=== PATIENT | male | born 1965 | race Caucasian/White ===

== ENCOUNTER 2017-03-08 11:10 | Emergency (ER) | payer MEDICAID ==
[~2017-03-08] VITALS: Ht 182.9 cm; Wt 73.7 kg
[2017-03-08 12:22] LABS: HEMATOCRIT 32.1 % (39.2-51.8); WHITE BLOOD COUNT 8.3 x10^3/uL (3.4-10)
[2017-03-08 12:33] LABS: BLOOD UREA NITROGEN 39 mg/dL (7-18)
[2017-03-08 12:45] LABS: IS PT STATUS REG ER OR PRE ER? YES
[2017-03-08 13:34] VITALS: BP 135/78
== END 2017-03-08 13:37 | disposition home or self-care (01) ==
LOC: ED 12:00
DX: I13.0 Hypertensive heart and chronic kidney disease with heart failure and stage 1 through stage 4 chronic kidney disease, or unspecified chronic kidney disease (principal); I50.42 Chronic combined systolic (congestive) and diastolic (congestive) heart failure; N18.3 Chronic kidney disease, stage 3 (moderate); F43.0 Acute stress reaction; F19.10 Other psychoactive substance abuse, uncomplicated
CPT/HCPCS: 36415; 71010; 80048; 82040; 83880; 84484; 85025; 93005; 99285

== ENCOUNTER 2017-03-30 06:00 | Emergency (ER) | payer MEDICAID ==
[~2017-03-30] VITALS: Ht 182.9 cm; Wt 81.1 kg
[2017-03-30] MEDS ORDERED: METOPROLOL SUCCINATE 25 MG TAB.ER.24H PO ONE (06:30)
[2017-03-30] MEDS ORDERED: FUROSEMIDE 20 MG/2 ML IV ONE (06:30)
[2017-03-30] MEDS ORDERED: SODIUM CHLORIDE FLUSH 10ML SYR IVF ONE (06:30)
[2017-03-30] MEDS ORDERED: FUROSEMIDE 20 MG/2 ML ONE (06:35)
[2017-03-30 06:57] LABS: HEMOGLOBIN 11.2 g/dL (13.7-18.0)
[2017-03-30 07:08] LABS: ASPARTATE AMINO TRANSFERASE 33 U/L (15-37); BLOOD UREA NITROGEN 42 mg/dL (7-18)
[2017-03-30 07:15] LABS: IS PT STATUS REG ER OR PRE ER? YES
[2017-03-30 07:30] LABS: HEMATOCRIT 32.5 % (39.2-51.8); WHITE BLOOD COUNT 8.1 x10^3/uL (3.4-10)
[2017-03-30 09:12] VITALS: BP 110/72
== END 2017-03-30 09:23 | disposition home or self-care (01) ==
LOC: ED 07:33
DX: I11.0 Hypertensive heart disease with heart failure (principal); I50.22 Chronic systolic (congestive) heart failure; E66.9 Obesity, unspecified; E11.9 Type 2 diabetes mellitus without complications; E07.9 Disorder of thyroid, unspecified; F32.9 Major depressive disorder, single episode, unspecified; I25.2 Old myocardial infarction; F17.210 Nicotine dependence, cigarettes, uncomplicated; M10.9 Gout, unspecified; Z59.0 Homelessness
CPT/HCPCS: 36415; 71010; 80053; 83880; 84484; 85025; 93005; 96374; 99285; J1940

== ENCOUNTER 2017-04-02 01:22 | Emergency (ER) | payer MEDICAID ==
[~2017-04-02] VITALS: Ht 182.9 cm; Wt 80.6 kg
[2017-04-02] MEDS ORDERED: LABETALOL 5MG/ML, 20ML IVPush STA (02:01)
[2017-04-02] MEDS ORDERED: LABETALOL 5MG/ML, 20ML ONE (02:16)
[2017-04-02 02:20] LABS: HEMATOCRIT 30.6 % (39.2-51.8); HEMOGLOBIN 10.7 g/dL (13.7-18.0); WHITE BLOOD COUNT 9.1 x10^3/uL (3.4-10)
[2017-04-02 02:30] LABS: ASPARTATE AMINO TRANSFERASE 36 U/L (15-37); BLOOD UREA NITROGEN 40 mg/dL (7-18)
[2017-04-02] MEDS ORDERED: SODIUM CHLORIDE FLUSH 10ML SYR IVF ONE (02:30)
[2017-04-02 03:09] VITALS: BP 149/92
== END 2017-04-02 04:24 | disposition home or self-care (01) ==
LOC: ED 01:40
DX: Z76.0 Encounter for issue of repeat prescription (principal); I10 Essential (primary) hypertension; N28.9 Disorder of kidney and ureter, unspecified; Z87.891 Personal history of nicotine dependence
CPT/HCPCS: 36415; 71010; 80053; 81001; 83880; 85025; 87086; 93005; 96374

== ENCOUNTER 2017-04-03 21:35 | Inpatient (IN) | payer MEDICAID ==
[~2017-04-03] VITALS: Ht 182.9 cm; Wt 80.1 kg
[2017-04-03 22:30] LABS: HEMATOCRIT 32.6 % (39.2-51.8); HEMOGLOBIN 11.3 g/dL (13.7-18.0); WHITE BLOOD COUNT 8.8 x10^3/uL (3.4-10)
[2017-04-03] MEDS ORDERED: METOPROLOL 1 MG/ML, 5ML IVPush PRN (22:30)
[2017-04-03] MEDS ORDERED: METOPROLOL 1 MG/ML, 5ML ONE (22:35)
[2017-04-03 22:42] LABS: PATH.CAST-FLAG NOT PRESENT; SPERM-FLAG NOT PRESENT; SRC-FLAG NOT PRESENT; XTAL-FLAG NOT PRESENT; YLC-FLAG NOT PRESENT
[2017-04-03 23:31] LABS: BLOOD UREA NITROGEN 41 mg/dL (7-18)
[2017-04-03 23:32] LABS: ASPARTATE AMINO TRANSFERASE 36 U/L (15-37)
[2017-04-03 23:36] LABS: IS PT STATUS REG ER OR PRE ER? YES
[2017-04-04 04:24] VITALS: BP 159/112
[2017-04-04] MEDS ORDERED: SODIUM CHLORIDE 0.9% 1,000 ML IV SCH (05:19)
[2017-04-04] MEDS ORDERED: hydrALAzine 20 MG/ML, 1ML IVPush PRN (05:30)
[2017-04-04] MEDS ORDERED: LABETALOL 5MG/ML, 20ML IVPush PRN (05:30)
[2017-04-04] MEDS ORDERED: ONDANSETRON 2MG/ML, 2ML IVPush PRN (05:30)
[2017-04-04] MEDS ORDERED: ACETAMINOPHEN 325 MG TABLET PO PRN (05:30)
[2017-04-04] MEDS: HEPARIN 5,000 UNITS/ML, 1ML SQ SCH ×2 (05:41→17:26)
[2017-04-04] MEDS: HYDROmorphone 2 MG/ML, 1ML IVPush PRN ×2 (05:41→20:19)
[2017-04-04] MEDS: METOPROLOL TARTRATE 25 MG TABLET PO SCH ×2 (06:25→17:33)
[2017-04-04 07:12] VITALS: BP 113/72
[2017-04-04] MEDS: TAMSULOSIN 0.4 MG CAP.ER.24H PO SCH (08:27)
[2017-04-04 13:43] VITALS: BP 116/78
[2017-04-04 20:10] VITALS: BP 144/84
[2017-04-05 01:21] VITALS: BP 127/83
[2017-04-05] MEDS: SODIUM CHLORIDE 0.9% 1,000 ML IV SCH ×2 (05:19→15:19)
[2017-04-05] MEDS: HEPARIN 5,000 UNITS/ML, 1ML SQ SCH ×2 (05:20→18:03)
[2017-04-05] MEDS: METOPROLOL TARTRATE 25 MG TABLET PO SCH ×2 (05:20→18:03)
[2017-04-05 05:49] LABS: HEMATOCRIT 29.8 % (39.2-51.8); HEMOGLOBIN 10.3 g/dL (13.7-18.0); WHITE BLOOD COUNT 6.3 x10^3/uL (3.4-10)
[2017-04-05 06:33] LABS: ASPARTATE AMINO TRANSFERASE 26 U/L (15-37); BLOOD UREA NITROGEN 48 mg/dL (7-18)
[2017-04-05 07:25] VITALS: BP 141/96
[2017-04-05] MEDS: TAMSULOSIN 0.4 MG CAP.ER.24H PO SCH (08:15)
[2017-04-05 13:28] VITALS: BP 150/97
[2017-04-05 18:36] VITALS: BP 161/83
[2017-04-06] MEDS: SODIUM CHLORIDE 0.9% 1,000 ML IV SCH ×2 (00:57→11:52)
[2017-04-06 01:50] VITALS: BP 157/76
[2017-04-06] MEDS: HEPARIN 5,000 UNITS/ML, 1ML SQ SCH (05:30)
[2017-04-06] MEDS: METOPROLOL TARTRATE 25 MG TABLET PO SCH (05:49)
[2017-04-06 05:57] LABS: HEMATOCRIT 30.1 % (39.2-51.8); HEMOGLOBIN 10.6 g/dL (13.7-18.0); WHITE BLOOD COUNT 6.9 x10^3/uL (3.4-10)
[2017-04-06 06:07] LABS: BLOOD UREA NITROGEN 51 mg/dL (7-18)
[2017-04-06 07:20] VITALS: BP 143/93
[2017-04-06] MEDS: TAMSULOSIN 0.4 MG CAP.ER.24H PO SCH (09:53)
[2017-04-06] MEDS ORDERED: METO25TA35 PO (12:24)
[2017-04-06] MEDS ORDERED: TAMS-11 PO (12:24)
[2017-04-06 13:25] VITALS: BP 157/87
== END 2017-04-06 15:40 | disposition home or self-care (01) | DRG 683 ==
LOC: ED 22:12 → EDIP 04-04 02:41 → 4WST 04-04 04:21
PROVIDERS: ADMIT Hospitalist; ATTEND Hospitalist
DX: N17.9 Acute kidney failure, unspecified (principal); I13.0 Hypertensive heart and chronic kidney disease with heart failure and stage 1 through stage 4 chronic kidney disease, or unspecified chronic kidney disease; I50.9 Heart failure, unspecified; N39.0 Urinary tract infection, site not specified; N13.30 Unspecified hydronephrosis; D64.9 Anemia, unspecified; I16.0 Hypertensive urgency; B19.20 Unspecified viral hepatitis C without hepatic coma; N18.9 Chronic kidney disease, unspecified; Z83.3 Family history of diabetes mellitus; Z87.891 Personal history of nicotine dependence; Z90.49 Acquired absence of other specified parts of digestive tract
CPT/HCPCS: 36415; 71010; 76770; 80048; 80053; 81001; 83735; 84100; 84484; 85025; 87086; 93005; 96374; J1170; J1644; J7030

== ENCOUNTER 2019-01-22 05:34 | Inpatient (IN) | payer MEDICAID ==
[~2019-01-22] VITALS: Ht 182.9 cm; Wt 93.7 kg
[~2019-01-22 05:34] MED LIST: METO25TA35 PO; TAMS-11 PO
--- NOTE | 2019-01-22 05:59 | NUR ---
Pt c/o right ankle swelling, redness, pain x 3-4 days, states "I think I was bit by a spider". Ambulates w/ steady gait, no open lesion noted, warm to touch, reports fever 2 days ago, afebrile now, vitals stable.
[2019-01-22] MEDS ORDERED: SODIUM CHLORIDE FLUSH 10ML SYR IVF ONE (06:30)
[2019-01-22] MEDS ORDERED: CEFTRIAXONE PMX 1GM/50ML 50 ML IVPB ONE (06:30)
--- NOTE | 2019-01-22 06:43 | NUR ---
Lab and xray at bedside.
[2019-01-22 07:07] LABS: BASOPHILS # (AUTO) 0.02 x10^3/uL (0-0.1); BASOPHILS % (AUTO) 0 % (0-1); EOSINOPHILS # (AUTO) 0.09 x10^3/uL (0-0.4); EOSINOPHILS % (AUTO) 2 % (1-7); LYMPHOCYTES # (AUTO) 0.95 x10^3/uL (1-3.4); LYMPHOCYTES % (AUTO) 16 % (22-44); MD NO; MEAN CORPUSCULAR HEMOGLOBIN 28.1 pg (27.5-34.5); MEAN CORPUSCULAR HGB CONC 33.8 g/dL (33.2-36.2); MEAN CORPUSCULAR VOLUME 83.1 fL (81-97); MEAN PLATELET VOLUME 7.9 fL (7.4-10.4); MONOCYTES # (AUTO) 0.96 x10^3/uL (0.2-0.8); MONOCYTES % (AUTO) 16 % (2-9); NEUTROPHILS # (AUTO) 3.87 x10^3/uL (1.8-6.8); NEUTROPHILS % (AUTO) 66 % (42-75); PLATELET COUNT 228 x10^3/uL (130-400); RED BLOOD COUNT 4.06 x10^6/uL (4.38-5.82); RED CELL DISTRIBUTION WIDTH 14.3 % (9.4-14.8)
[2019-01-22 07:15] LABS: INTERNATIONAL NORMALIZED RATIO 1.05 (0.93-1.1)
[2019-01-22 07:18] LABS: ALBUMIN 3.6 g/dL (3.4-5.0); ANION GAP 12 mmol/L (5-15); CALCIUM 8.7 mg/dL (8.5-10.1); CHLORIDE 104 mmol/L (98-107); CREATININE 3.85 mg/dL (0.7-1.3)
--- NOTE | 2019-01-22 07:40 | NUR ---
assumed care. pt noted to have erythema ankle and states he has off and on chills. walking around in room and requested water. provided water and a blanket. back in bed while awaiting dispo
[2019-01-22] MEDS ORDERED: CEFTRIAXONE PMX 1GM/50ML 50 ML ONE (09:04)
--- NOTE | 2019-01-22 09:09 | NUR ---
pt sleeping, antibiotics infusing
--- NOTE | 2019-01-22 09:30 | NUR ---
JD STATES HE HAS LEG CRAMPS AND IT HELPS TO GET UP AND STAND.
--- NOTE | 2019-01-22 10:30 | NUR ---
REPORT TO JEFFRY JANG. PT TO BE TRANSPORTED TO FLOOR
[2019-01-22 11:09] VITALS: BP 121/76
[2019-01-22] MEDS ORDERED: morphine SULFATE 10 MG/ML, 1ML IVPush PRN (11:30)
[2019-01-22] MEDS: OXYcodone IR 5MG TABLET PO PRN ×2 (11:34→23:54)
[2019-01-22] MEDS ORDERED: ACETAMINOPHEN 325 MG TABLET PO PRN (12:00)
[2019-01-22] MEDS ORDERED: PROMETHAZINE 25 MG/ML, 1ML IM PRN (12:00)
[2019-01-22] MEDS ORDERED: LABETALOL 5MG/ML, 20ML IVPush PRN (12:00)
[2019-01-22] MEDS ORDERED: ONDANSETRON ODT 4 MG PO PRN (12:00)
[2019-01-22] MEDS ORDERED: BISACODYL 10 MG SUPP PR PRN (12:00)
[2019-01-22] MEDS ORDERED: POLYETHYLENE GLYCOL 17 GM PACKET PO PRN (12:00)
[2019-01-22] MEDS ORDERED: hydrALAzine 20 MG/ML, 1ML IVPush PRN (12:00)
[2019-01-22] MEDS ORDERED: ONDANSETRON 2MG/ML, 2ML IVPush PRN (12:00)
[2019-01-22 12:45] LABS: HEMOGLOBIN A1C 4.9 % (4.2-6.3)
[2019-01-22] MEDS: SENNA/DOCUSATE TABLET PO SCH (12:46)
[2019-01-22] MEDS: AMPICILLIN/SULBACTAM 3 GM in SODIUM CHLORIDE 0.9% 100 ML IV SCH ×2 (12:46→23:54)
[2019-01-22] MEDS: TAMSULOSIN 0.4 MG CAP.ER.24H PO SCH (12:46)
[2019-01-22] MEDS: SODIUM CHLORIDE 0.9% 1,000 ML IV SCH ×2 (12:47→22:08)
[2019-01-22] MEDS: HEPARIN 5,000 UNITS/ML, 1ML SQ SCH ×2 (12:47→19:45)
[2019-01-22 12:56] LABS: FREE T4 (FREE THYROXINE) 1.36 ng/dL (0.76-1.46)
[2019-01-22 14:08] VITALS: BP 131/82
[2019-01-22 17:14] VITALS: BP 146/81
[2019-01-22] MEDS: METOPROLOL TARTRATE 25 MG TABLET PO SCH (17:16)
[2019-01-22 19:12] VITALS: BP 120/78
[2019-01-23 02:19] VITALS: BP 130/81
[2019-01-23] MEDS: HEPARIN 5,000 UNITS/ML, 1ML SQ SCH ×3 (03:49→20:08)
[2019-01-23 05:50] LABS: BASOPHILS % (AUTO) 0 % (0-1); EOSINOPHILS % (AUTO) 4 % (1-7); LYMPHOCYTES # (AUTO) 0.84 x10^3/uL (1-3.4); LYMPHOCYTES % (AUTO) 18 % (22-44); MD NO; MEAN CORPUSCULAR HEMOGLOBIN 29.2 pg (27.5-34.5); MEAN CORPUSCULAR HGB CONC 34.6 g/dL (33.2-36.2); MEAN CORPUSCULAR VOLUME 84.5 fL (81-97); MEAN PLATELET VOLUME 8.2 fL (7.4-10.4); MONOCYTES # (AUTO) 0.72 x10^3/uL (0.2-0.8); MONOCYTES % (AUTO) 16 % (2-9); NEUTROPHILS # (AUTO) 2.88 x10^3/uL (1.8-6.8); NEUTROPHILS % (AUTO) 62 % (42-75); PLATELET COUNT 196 x10^3/uL (130-400); RED BLOOD COUNT 3.68 x10^6/uL (4.38-5.82); RED CELL DISTRIBUTION WIDTH 14.5 % (9.4-14.8)
[2019-01-23 06:01] LABS: ALANINE AMINOTRANSFERASE 30 U/L (12-78); ALBUMIN 2.8 g/dL (3.4-5.0); ALKALINE PHOSPHATASE 70 U/L (45-117); ANION GAP 7 mmol/L (5-15); BILIRUBIN,TOTAL 0.6 mg/dL (0.2-1.0); CALCIUM 7.7 mg/dL (8.5-10.1); CHLORIDE 109 mmol/L (98-107); CHOL/HDL RATIO 2.9; CHOLESTEROL, TOTAL 110 mg/dL (140-239); CREATININE 3.18 mg/dL (0.7-1.3); HDL CHOL % 35 % (26-37); HDL CHOLESTEROL (DIRECT) 38 mg/dL (40-60); LDL CHOLESTEROL,CALCULATED 60 mg/dL (54-169); LDL/HDL RATIO 1.6 (0.5-3.0); TOTAL PROTEIN 7.2 g/dL (6.4-8.2); TRIGLYCERIDES 60 mg/dL (50-200); VLDL CHOLESTEROL 12 mg/dL (0-25)
[2019-01-23] MEDS: METOPROLOL TARTRATE 25 MG TABLET PO SCH ×2 (06:27→17:46)
[2019-01-23 07:21] VITALS: BP 119/75
[2019-01-23] MEDS: TAMSULOSIN 0.4 MG CAP.ER.24H PO SCH (07:46)
[2019-01-23] MEDS: SENNA/DOCUSATE TABLET PO SCH (07:46)
[2019-01-23] MEDS: AMPICILLIN/SULBACTAM 3 GM in SODIUM CHLORIDE 0.9% 100 ML IV SCH ×2 (12:11→23:42)
[2019-01-23 14:36] VITALS: BP 152/88
[2019-01-23 17:45] VITALS: BP 131/85
[2019-01-23 18:50] VITALS: BP 155/83
[2019-01-24 01:22] VITALS: BP 144/80
[2019-01-24] MEDS: HEPARIN 5,000 UNITS/ML, 1ML SQ SCH ×3 (04:22→20:43)
[2019-01-24] MEDS: METOPROLOL TARTRATE 25 MG TABLET PO SCH ×2 (06:07→17:31)
[2019-01-24] MEDS: SENNA/DOCUSATE TABLET PO SCH (08:02)
[2019-01-24] MEDS: TAMSULOSIN 0.4 MG CAP.ER.24H PO SCH (08:02)
[2019-01-24 08:47] VITALS: BP 160/85
[2019-01-24] MEDS: AMPICILLIN/SULBACTAM 3 GM in SODIUM CHLORIDE 0.9% 100 ML IV SCH (12:27)
[2019-01-24 12:59] VITALS: BP 146/79
[2019-01-24 17:23] VITALS: BP 159/95
[2019-01-24] MEDS: OXYcodone IR 5MG TABLET PO PRN (20:54)
[2019-01-24 21:04] VITALS: BP 140/87
[2019-01-25] MEDS: AMPICILLIN/SULBACTAM 3 GM in SODIUM CHLORIDE 0.9% 100 ML IV SCH (00:10)
[2019-01-25 00:17] VITALS: BP 146/92
[2019-01-25] MEDS: HEPARIN 5,000 UNITS/ML, 1ML SQ SCH ×2 (04:15→12:24)
[2019-01-25] MEDS: OXYcodone IR 5MG TABLET PO PRN (04:15)
[2019-01-25 06:10] VITALS: BP 110/65
[2019-01-25] MEDS: METOPROLOL TARTRATE 25 MG TABLET PO SCH ×2 (06:11→17:50)
[2019-01-25 07:54] VITALS: BP 123/77
[2019-01-25] MEDS: SENNA/DOCUSATE TABLET PO SCH (09:27)
[2019-01-25] MEDS: TAMSULOSIN 0.4 MG CAP.ER.24H PO SCH (09:27)
[2019-01-25] MEDS ORDERED: AMPICILLIN/SULBACTAM 3 GM in SODIUM CHLORIDE 0.9% 100 ML IV SCH (12:00)
[2019-01-25 12:46] VITALS: BP 131/62
[2019-01-25] MEDS ORDERED: AMOX1TAB64 PO (14:38)
== END 2019-01-25 22:11 | disposition home or self-care (01) | DRG 469 ==
LOC: ED 06:34 → EDIP 08:11 → 4NOR 11:03
PROVIDERS: ADMIT Internal Medicine; ATTEND Internal Medicine
DX: N17.0 Acute kidney failure with tubular necrosis (principal); E11.22 Type 2 diabetes mellitus with diabetic chronic kidney disease; L03.115 Cellulitis of right lower limb; I50.9 Heart failure, unspecified; I13.0 Hypertensive heart and chronic kidney disease with heart failure and stage 1 through stage 4 chronic kidney disease, or unspecified chronic kidney disease; N13.30 Unspecified hydronephrosis; R16.1 Splenomegaly, not elsewhere classified; B18.2 Chronic viral hepatitis C; F15.10 Other stimulant abuse, uncomplicated; I87.8 Other specified disorders of veins; R33.9 Retention of urine, unspecified; N18.3 Chronic kidney disease, stage 3 (moderate); Z83.3 Family history of diabetes mellitus; Z87.891 Personal history of nicotine dependence; Z90.49 Acquired absence of other specified parts of digestive tract
CPT/HCPCS: 36415; 71045; 80048; 80053; 80061; 82040; 83036; 83605; 83735; 84439; 84443; 85025; 85610; 87040; 96365; 99285; G0378; J0295; J0696; J1644; J7030

== ENCOUNTER 2020-04-12 13:35 | Emergency (ER) | payer MEDICAID ==
[~2020-04-12] VITALS: Ht 182.9 cm; Wt 80.2 kg
[~2020-04-12 13:35] MED LIST changes: +AMOX1TAB64 PO
[2020-04-12 13:38] VITALS: BP 152/119
[2020-04-12] MEDS ORDERED: TAMSULOSIN 0.4 MG CAP.ER.24H ONE (14:00)
[2020-04-12] MEDS ORDERED: TAMSULOSIN 0.4 MG CAP.ER.24H PO ONE (14:00)
[2020-04-12 14:23] LABS: MICROSCOPIC INDICATED
[2020-04-12] MEDS ORDERED: AZITHROMYCIN 500 MG TABLET PO ONE (14:30)
[2020-04-12] MEDS ORDERED: CEFTRIAXONE 250 MG IM ONE (14:30)
[2020-04-12] MEDS ORDERED: AZITHROMYCIN 500 MG TABLET ONE (14:35)
[2020-04-12] MEDS ORDERED: CEFTRIAXONE 250 MG ONE (14:35)
== END 2020-04-12 15:02 | disposition home or self-care (01) ==
LOC: ED 14:26
DX: N30.00 Acute cystitis without hematuria (principal); N50.812 Left testicular pain; N50.811 Right testicular pain; R36.9 Urethral discharge, unspecified; I10 Essential (primary) hypertension; Z76.0 Encounter for issue of repeat prescription
CPT/HCPCS: 81001; 87077; 87086; 87491; 87591; 96372; 99283; J0696; 87186

== ENCOUNTER 2020-06-13 09:35 | Emergency (ER) | payer MEDICAID ==
[~2020-06-13] VITALS: Ht 185.4 cm; Wt 79.8 kg
--- NOTE | 2020-06-13 09:41 | NUR ---
No answer when pt called for triage.
[2020-06-13 09:51] VITALS: BP 153/100
--- NOTE | 2020-06-13 10:00 | NUR ---
No answer when called for room from lobby.
--- NOTE | 2020-06-13 10:42 | NUR ---
Pt not in lobby when called to room
== END 2020-06-13 10:44 | disposition left against medical advice (07) ==
LOC: ED 10:33
DX: M25.879 Other specified joint disorders, unspecified ankle and foot (principal); Z53.21 Procedure and treatment not carried out due to patient leaving prior to being seen by health care provider

== ENCOUNTER 2020-06-18 09:26 | Emergency (ER) | payer MEDICAID ==
[~2020-06-18] VITALS: Ht 182.9 cm; Wt 80.0 kg
[2020-06-18 09:29] VITALS: BP 112/71
[2020-06-18] MEDS ORDERED: KETOROLAC 30 MG/1 ML ONE (10:21)
[2020-06-18 10:30] LABS: BASOPHILS % (AUTO) 0 % (0-1); EOSINOPHILS % (AUTO) 1 % (1-7); LYMPHOCYTES % (AUTO) 13 % (22-44); MEAN CORPUSCULAR HEMOGLOBIN 28.9 pg (27.5-34.5); MEAN PLATELET VOLUME 7.6 fL (7.4-10.4); MONOCYTES % (AUTO) 12 % (2-9); NEUTROPHILS % (AUTO) 73 % (42-75); PLATELET COUNT 231 x10^3/uL (130-400); RED BLOOD COUNT 3.96 x10^6/uL (4.38-5.82); RED CELL DISTRIBUTION WIDTH 14.4 % (9.4-14.8)
[2020-06-18] MEDS ORDERED: KETOROLAC 30 MG/1 ML IM ONE (10:30)
[2020-06-18 10:31] LABS: MD NO
== END 2020-06-18 11:38 | disposition home or self-care (01) ==
LOC: ED 11:20
DX: M10.9 Gout, unspecified (principal); M13.172 Monoarthritis, not elsewhere classified, left ankle and foot; M25.572 Pain in left ankle and joints of left foot; I11.0 Hypertensive heart disease with heart failure; I50.9 Heart failure, unspecified; E11.9 Type 2 diabetes mellitus without complications; Z90.49 Acquired absence of other specified parts of digestive tract; Z87.891 Personal history of nicotine dependence
CPT/HCPCS: 36415; 73610; 84550; 85025; 96372; 99284; J1885

== ENCOUNTER 2020-09-30 12:22 | Inpatient (IN) | payer MEDICAID ==
[~2020-09-30] VITALS: Ht 182.9 cm; Wt 74.8 kg
--- NOTE | 2020-09-30 12:47 | NUR ---
Pt made aware of need to change into gown
[2020-09-30] MEDS ORDERED: SODIUM CHLORIDE FLUSH 10ML SYR IVF ONE (13:30)
[2020-09-30 13:46] LABS: BASOPHILS % (AUTO) 0 % (0-1); EOSINOPHILS % (AUTO) 2 % (1-7); LYMPHOCYTES % (AUTO) 8 % (22-44); MEAN CORPUSCULAR HEMOGLOBIN 28.5 pg (27.5-34.5); MEAN CORPUSCULAR HGB CONC 34.3 g/dL (33.2-36.2); MEAN PLATELET VOLUME 7.3 fL (7.4-10.4); MONOCYTES % (AUTO) 8 % (2-9); NEUTROPHILS % (AUTO) 82 % (42-75); PLATELET COUNT 323 x10^3/uL (130-400); RED CELL DISTRIBUTION WIDTH 14.6 % (9.4-14.8)
[2020-09-30 13:48] LABS: MD NO
[2020-09-30 13:58] LABS: ALBUMIN 3.4 g/dL (3.4-5.0); ANION GAP 12 mmol/L (5-15); CALCIUM 8.6 mg/dL (8.5-10.1); CHLORIDE 105 mmol/L (98-107)
[2020-09-30 14:01] LABS: ALANINE AMINOTRANSFERASE 28 U/L (12-78); ALKALINE PHOSPHATASE 93 U/L (45-117); BILIRUBIN,TOTAL 0.3 mg/dL (0.2-1.0); TOTAL PROTEIN 9.2 g/dL (6.4-8.2)
--- NOTE | 2020-09-30 14:47 | NUR ---
xRAY AT BEDSIDE
--- NOTE | 2020-09-30 14:56 | NUR ---
Pt continually removing VS monitorings, moving around room constantly, yelling obscenities at SO, refusing to sit still.
--- NOTE | 2020-09-30 15:03 | NUR ---
Pt changed himself out of gown back into clothing, UA collected
[2020-09-30 15:49] LABS: MICROSCOPIC INDICATED
--- NOTE | 2020-09-30 16:25 | NUR ---
Pt reminded again that he can not be admitted unless he is in a gown
[2020-09-30] MEDS ORDERED: VANCOMYCIN PER PHARMACY MC PRN (16:30)
[2020-09-30] MEDS ORDERED: ONDANSETRON 2MG/ML, 2ML IVPush PRN (16:30)
[2020-09-30] MEDS ORDERED: SODIUM CHLORIDE FLUSH 10ML SYR IVF PRN (16:30)
[2020-09-30] MEDS ORDERED: ACETAMINOPHEN 325 MG TABLET PO PRN (16:30)
[2020-09-30] MEDS ORDERED: POLYETHYLENE GLYCOL 17 GM PACKET PO PRN (16:30)
[2020-09-30] MEDS ORDERED: ONDANSETRON ODT 4 MG PO PRN (16:30)
--- NOTE | 2020-09-30 16:40 | NUR ---
Pt changed into gown but kept pants on, made aware that pants need to be off. US at bedside
--- NOTE | 2020-09-30 17:01 | NUR ---
Pt changed himself back into clothing and placed gown on top of clothing. Pt made aware that he needs to be fully undressed and changed into gown so he can go to floor and needs to be in gown to have IV placed for transfer to floor
[2020-09-30 17:29] LABS: INTERNATIONAL NORMALIZED RATIO 1.06 (0.93-1.1); PROTHROMBIN TIME 11.3 Seconds (9.6-11.5)
[2020-09-30] MEDS ORDERED: PHARMACOKINETIC MONITORING MC PRN (17:30)
[2020-09-30] MEDS ORDERED: PHARMACOKINETIC CONSULTATION MC ONE (17:30)
--- NOTE | 2020-09-30 17:43 | NUR ---
Ortho doctor at bedside to evaluate pt. Per ortho pt does not need surgical intervention at this time. Spoke with Dr. Foster regarding TB gold test ordered for pt as pt is asymptomatic at this time. Per Dr. Foster pt does not require TB isolation.
--- NOTE | 2020-09-30 17:52 | NUR ---
Called Brandie JANG on [facility] to confirm room assignment.
[2020-09-30] MEDS ORDERED: VANCOMYCIN 1,500 MG in SODIUM CHLORIDE 0.9% 250 ML IV ONE (18:00)
--- NOTE | 2020-09-30 18:17 | NUR ---
LARRY boogie initiated per AUG. POC discussed with pt. Pt again reinforced education that he needs to remain in hospital gown. PT provided warm blankets. PT agreeable to POC.
[2020-09-30 18:42] VITALS: BP 198/124
[2020-09-30] MEDS: hydrALAzine 20 MG/ML, 1ML IVPush PRN (18:48)
[2020-09-30] MEDS: CARVEDILOL 25 MG TABLET PO SCH (19:00)
[2020-09-30 22:10] VITALS: BP 147/93
[2020-09-30] MEDS: CEFTRIAXONE PMX 2GM/50ML 50 ML IVPB SCH (23:53)
[2020-09-30] MEDS: LACTATED RINGERS 1,000 ML IV SCH (23:56)
[2020-10-01 01:45] VITALS: BP 133/84
[2020-10-01] MEDS: CARVEDILOL 25 MG TABLET PO SCH ×2 (05:10→17:53)
[2020-10-01] MEDS ORDERED: TAMSULOSIN 0.4 MG CAP.ER.24H ONE (05:16)
[2020-10-01] MEDS: TAMSULOSIN 0.4 MG CAP.ER.24H PO SCH (05:17)
[2020-10-01 06:05] LABS: BASOPHILS % (AUTO) 0 % (0-1); EOSINOPHILS % (AUTO) 2 % (1-7); LYMPHOCYTES % (AUTO) 9 % (22-44); MEAN CORPUSCULAR HEMOGLOBIN 28.4 pg (27.5-34.5); MEAN CORPUSCULAR HGB CONC 34.1 g/dL (33.2-36.2); MONOCYTES % (AUTO) 9 % (2-9); NEUTROPHILS % (AUTO) 80 % (42-75); PLATELET COUNT 263 x10^3/uL (130-400); RED BLOOD COUNT 3.52 x10^6/uL (4.38-5.82); RED CELL DISTRIBUTION WIDTH 14.6 % (9.4-14.8)
[2020-10-01 06:07] LABS: MD NO
[2020-10-01 06:13] LABS: CHLORIDE 108 mmol/L (98-107)
[2020-10-01 06:22] LABS: ALANINE AMINOTRANSFERASE 26 U/L (12-78); ALBUMIN 2.8 g/dL (3.4-5.0); ALKALINE PHOSPHATASE 77 U/L (45-117); BILIRUBIN,TOTAL 0.3 mg/dL (0.2-1.0); CALCIUM 8.2 mg/dL (8.5-10.1); CREATININE 6.06 mg/dL (0.7-1.3); TOTAL PROTEIN 7.9 g/dL (6.4-8.2)
[2020-10-01 06:44] VITALS: BP 155/97
[2020-10-01 07:27] LABS: ANION GAP 10 mmol/L (5-15)
[2020-10-01] MEDS: SENNA/DOCUSATE TABLET PO SCH (09:18)
[2020-10-01] MEDS: HEPARIN 5,000 UNITS/ML, 1ML SQ SCH ×2 (09:20→17:52)
[2020-10-01] MEDS: LACTATED RINGERS 1,000 ML IV SCH ×2 (11:41→22:32)
[2020-10-01 13:34] VITALS: BP 137/80
[2020-10-01] MEDS ORDERED: LIDOCAINE JELLY 2%, 30GM TP ONE (17:00)
[2020-10-01 19:44] VITALS: BP 129/77
[2020-10-01] MEDS: CEFTRIAXONE PMX 2GM/50ML 50 ML IVPB SCH (22:31)
[2020-10-02 00:18] VITALS: BP 133/77
[2020-10-02] MEDS: PHENAZOPYRIDINE 100 MG TABLET PO PRN ×3 (02:15→21:26)
[2020-10-02] MEDS: morphine SULFATE 10 MG/ML, 1ML IVPush PRN ×2 (02:46→05:58)
[2020-10-02] MEDS: CARVEDILOL 25 MG TABLET PO SCH ×2 (05:52→17:58)
[2020-10-02] MEDS: HEPARIN 5,000 UNITS/ML, 1ML SQ SCH ×3 (05:53→21:00)
[2020-10-02 06:31] LABS: BASOPHILS % (AUTO) 1 % (0-1); EOSINOPHILS % (AUTO) 2 % (1-7); LYMPHOCYTES % (AUTO) 17 % (22-44); MEAN CORPUSCULAR HEMOGLOBIN 28.3 pg (27.5-34.5); MEAN CORPUSCULAR HGB CONC 33.9 g/dL (33.2-36.2); MEAN PLATELET VOLUME 7.6 fL (7.4-10.4); MONOCYTES % (AUTO) 9 % (2-9); NEUTROPHILS % (AUTO) 71 % (42-75); PLATELET COUNT 231 x10^3/uL (130-400); RED BLOOD COUNT 3.34 x10^6/uL (4.38-5.82); RED CELL DISTRIBUTION WIDTH 14.6 % (9.4-14.8)
[2020-10-02 06:36] LABS: ALBUMIN 2.4 g/dL (3.4-5.0); ANION GAP 6 mmol/L (5-15); CALCIUM 7.9 mg/dL (8.5-10.1); CHLORIDE 109 mmol/L (98-107); CREATININE 5.45 mg/dL (0.7-1.3)
[2020-10-02 06:46] LABS: MD NO
[2020-10-02 08:25] VITALS: BP 128/80
[2020-10-02] MEDS: LACTATED RINGERS 1,000 ML IV SCH ×2 (08:29→17:08)
[2020-10-02] MEDS: IRON SUCROSE COMPLEX 100MG/5ML IV SCH (08:29)
[2020-10-02] MEDS: HYDROcodone/APAP 5/325 TABLET PO PRN ×3 (08:30→17:57)
[2020-10-02] MEDS: TAMSULOSIN 0.4 MG CAP.ER.24H PO SCH (08:31)
[2020-10-02] MEDS: SENNA/DOCUSATE TABLET PO SCH (08:31)
[2020-10-02 12:17] VITALS: BP 139/80
[2020-10-02] MEDS: FINASTERIDE 5 MG TABLET PO SCH (13:00)
[2020-10-02] MEDS ORDERED: VANCOMYCIN 1,500 MG in SODIUM CHLORIDE 0.9% 250 ML IV SCH (18:00)
[2020-10-02 20:56] VITALS: BP 128/83
[2020-10-02] MEDS: TEMAZEPAM 15 MG CAPSULE PO PRN (21:26)
[2020-10-02] MEDS: CEFTRIAXONE PMX 2GM/50ML 50 ML IVPB SCH (23:49)
[2020-10-03] VITALS (9 sets, daily range): BP systolic 119–194; BP diastolic 76–119
[2020-10-03] MEDS: HYDROcodone/APAP 5/325 TABLET PO PRN ×4 (02:13→20:41)
[2020-10-03 04:44] LABS: ALBUMIN 2.5 g/dL (3.4-5.0); ANION GAP 6 mmol/L (5-15); CALCIUM 8.4 mg/dL (8.5-10.1); CHLORIDE 109 mmol/L (98-107); CREATININE 5.16 mg/dL (0.7-1.3)
[2020-10-03] MEDS: HEPARIN 5,000 UNITS/ML, 1ML SQ SCH ×3 (05:00→20:41)
[2020-10-03] MEDS: CARVEDILOL 25 MG TABLET PO SCH ×2 (06:20→16:56)
[2020-10-03] MEDS ORDERED: SODIUM POLYSTYRENE SULFONATE ORAL SUSP PO ONE (06:34)
[2020-10-03] MEDS: IRON SUCROSE COMPLEX 100MG/5ML IV SCH (08:23)
[2020-10-03] MEDS: TAMSULOSIN 0.4 MG CAP.ER.24H PO SCH (08:23)
[2020-10-03] MEDS: SENNA/DOCUSATE TABLET PO SCH (08:32)
[2020-10-03 09:47] LABS: BASOPHILS % (AUTO) 1 % (0-1); EOSINOPHILS % (AUTO) 2 % (1-7); LYMPHOCYTES % (AUTO) 16 % (22-44); MEAN CORPUSCULAR HEMOGLOBIN 27.9 pg (27.5-34.5); MEAN CORPUSCULAR HGB CONC 33.5 g/dL (33.2-36.2); MEAN PLATELET VOLUME 7.2 fL (7.4-10.4); MONOCYTES % (AUTO) 8 % (2-9); NEUTROPHILS % (AUTO) 74 % (42-75); PLATELET COUNT 281 x10^3/uL (130-400); RED BLOOD COUNT 3.77 x10^6/uL (4.38-5.82); RED CELL DISTRIBUTION WIDTH 14.5 % (9.4-14.8)
[2020-10-03 09:49] LABS: MD NO
[2020-10-03] MEDS: FINASTERIDE 5 MG TABLET PO SCH (10:34)
[2020-10-03] MEDS: LACTATED RINGERS 1,000 ML IV SCH (12:00)
[2020-10-03] MEDS: AMLODIPINE 5 MG TABLET PO SCH ×2 (12:05→20:41)
[2020-10-03] MEDS: hydrALAzine 20 MG/ML, 1ML IVPush PRN ×2 (13:14→18:42)
[2020-10-03] MEDS ORDERED: ENALAPRILAT 1.25 MG/ML, 1ML ONE (16:51)
[2020-10-03] MEDS ORDERED: ENALAPRILAT 1.25 MG/ML, 2ML IV ONE (17:00)
[2020-10-03] MEDS: TEMAZEPAM 15 MG CAPSULE PO PRN (22:33)
[2020-10-03] MEDS: CEFTRIAXONE PMX 2GM/50ML 50 ML IVPB SCH (23:46)
[2020-10-04 00:41] VITALS: BP 146/101
[2020-10-04] MEDS: HYDROcodone/APAP 5/325 TABLET PO PRN ×3 (01:58→10:24)
[2020-10-04 05:17] LABS: BASOPHILS % (AUTO) 0 % (0-1); EOSINOPHILS % (AUTO) 2 % (1-7); LYMPHOCYTES % (AUTO) 11 % (22-44); MD NO; MEAN CORPUSCULAR HEMOGLOBIN 28.2 pg (27.5-34.5); MEAN CORPUSCULAR HGB CONC 34.1 g/dL (33.2-36.2); MEAN PLATELET VOLUME 6.9 fL (7.4-10.4); MONOCYTES % (AUTO) 7 % (2-9); NEUTROPHILS % (AUTO) 79 % (42-75); PLATELET COUNT 349 x10^3/uL (130-400); RED BLOOD COUNT 4.31 x10^6/uL (4.38-5.82); RED CELL DISTRIBUTION WIDTH 14.4 % (9.4-14.8)
[2020-10-04 05:29] LABS: ALBUMIN 2.9 g/dL (3.4-5.0); ANION GAP 5 mmol/L (5-15); CHLORIDE 106 mmol/L (98-107); CREATININE 4.46 mg/dL (0.7-1.3)
[2020-10-04] MEDS: LACTATED RINGERS 1,000 ML IV SCH ×2 (05:35→19:10)
[2020-10-04] MEDS: HEPARIN 5,000 UNITS/ML, 1ML SQ SCH ×3 (05:42→20:50)
[2020-10-04] MEDS: CARVEDILOL 25 MG TABLET PO SCH ×2 (05:42→18:08)
[2020-10-04] MEDS: PHENAZOPYRIDINE 100 MG TABLET PO PRN ×2 (05:43→10:41)
[2020-10-04] MEDS: FINASTERIDE 5 MG TABLET PO SCH (08:24)
[2020-10-04] MEDS: AMLODIPINE 5 MG TABLET PO SCH ×2 (08:24→20:50)
[2020-10-04] MEDS: IRON SUCROSE COMPLEX 100MG/5ML IV SCH (08:24)
[2020-10-04] MEDS: TAMSULOSIN 0.4 MG CAP.ER.24H PO SCH (08:24)
[2020-10-04] MEDS: SENNA/DOCUSATE TABLET PO SCH (08:25)
[2020-10-04] MEDS: CEFTAROLINE 200 MG in SODIUM CHLORIDE 0.9% 100 ML IV SCH (13:06)
[2020-10-04 19:02] VITALS: BP 152/98
[2020-10-04] MEDS: TEMAZEPAM 15 MG CAPSULE PO PRN (20:50)
[2020-10-05] MEDS: CEFTAROLINE 200 MG in SODIUM CHLORIDE 0.9% 100 ML IV SCH ×3 (01:00→22:31)
[2020-10-05 01:04] VITALS: BP 137/89
[2020-10-05 05:44] VITALS: BP 151/94
[2020-10-05] MEDS: HEPARIN 5,000 UNITS/ML, 1ML SQ SCH ×3 (05:46→22:30)
[2020-10-05] MEDS: CARVEDILOL 25 MG TABLET PO SCH ×3 (05:47→19:22)
[2020-10-05] MEDS: HYDROcodone/APAP 5/325 TABLET PO PRN ×2 (05:47→22:30)
[2020-10-05 07:55] LABS: BASOPHILS % (AUTO) 1 % (0-1); EOSINOPHILS % (AUTO) 3 % (1-7); LYMPHOCYTES % (AUTO) 14 % (22-44); MEAN CORPUSCULAR HEMOGLOBIN 27.9 pg (27.5-34.5); MEAN CORPUSCULAR HGB CONC 33.8 g/dL (33.2-36.2); MEAN PLATELET VOLUME 7.1 fL (7.4-10.4); MONOCYTES % (AUTO) 7 % (2-9); NEUTROPHILS % (AUTO) 75 % (42-75); PLATELET COUNT 337 x10^3/uL (130-400); RED BLOOD COUNT 3.97 x10^6/uL (4.38-5.82); RED CELL DISTRIBUTION WIDTH 14.2 % (9.4-14.8)
[2020-10-05 08:02] LABS: MD NO
[2020-10-05 08:07] LABS: ALANINE AMINOTRANSFERASE 35 U/L (12-78); ALBUMIN 2.7 g/dL (3.4-5.0); ANION GAP 6 mmol/L (5-15); CHLORIDE 105 mmol/L (98-107); CREATININE 4.43 mg/dL (0.7-1.3)
[2020-10-05 08:09] LABS: ALKALINE PHOSPHATASE 68 U/L (45-117); BILIRUBIN,TOTAL 0.3 mg/dL (0.2-1.0); TOTAL PROTEIN 7.6 g/dL (6.4-8.2)
[2020-10-05] MEDS: LACTATED RINGERS 1,000 ML IV SCH ×2 (08:30→20:49)
[2020-10-05] MEDS: SENNA/DOCUSATE TABLET PO SCH (09:00)
[2020-10-05] MEDS: FINASTERIDE 5 MG TABLET PO SCH (09:55)
[2020-10-05] MEDS: IRON SUCROSE COMPLEX 100MG/5ML IV SCH (09:56)
[2020-10-05] MEDS: TAMSULOSIN 0.4 MG CAP.ER.24H PO SCH (09:56)
[2020-10-05] MEDS: AMLODIPINE 5 MG TABLET PO SCH ×2 (09:56→22:30)
[2020-10-05 19:12] VITALS: BP 145/87
[2020-10-05] MEDS: TEMAZEPAM 15 MG CAPSULE PO PRN (22:30)
[2020-10-06 01:13] VITALS: BP 133/79
[2020-10-06] MEDS: HEPARIN 5,000 UNITS/ML, 1ML SQ SCH ×3 (06:16→20:36)
[2020-10-06] MEDS: CARVEDILOL 25 MG TABLET PO SCH ×2 (06:16→18:24)
[2020-10-06 08:49] LABS: BASOPHILS % (AUTO) 1 % (0-1); EOSINOPHILS % (AUTO) 3 % (1-7); LYMPHOCYTES % (AUTO) 18 % (22-44); MEAN CORPUSCULAR HEMOGLOBIN 28.6 pg (27.5-34.5); MEAN CORPUSCULAR HGB CONC 34.5 g/dL (33.2-36.2); MEAN PLATELET VOLUME 6.9 fL (7.4-10.4); MONOCYTES % (AUTO) 8 % (2-9); NEUTROPHILS % (AUTO) 71 % (42-75); PLATELET COUNT 271 x10^3/uL (130-400); RED BLOOD COUNT 3.75 x10^6/uL (4.38-5.82); RED CELL DISTRIBUTION WIDTH 14.2 % (9.4-14.8)
[2020-10-06 08:51] LABS: ALANINE AMINOTRANSFERASE 39 U/L (12-78); ALBUMIN 2.7 g/dL (3.4-5.0); ANION GAP 8 mmol/L (5-15); CALCIUM 8.4 mg/dL (8.5-10.1); CHLORIDE 106 mmol/L (98-107); CREATININE 5.02 mg/dL (0.7-1.3); MD NO
[2020-10-06] MEDS: TAMSULOSIN 0.4 MG CAP.ER.24H PO SCH (08:52)
[2020-10-06] MEDS: AMLODIPINE 5 MG TABLET PO SCH ×2 (08:52→20:36)
[2020-10-06] MEDS: FINASTERIDE 5 MG TABLET PO SCH (08:52)
[2020-10-06] MEDS: IRON SUCROSE COMPLEX 100MG/5ML IV SCH (08:52)
[2020-10-06] MEDS: SENNA/DOCUSATE TABLET PO SCH (08:52)
[2020-10-06 08:53] LABS: ALKALINE PHOSPHATASE 65 U/L (45-117); BILIRUBIN,TOTAL 0.2 mg/dL (0.2-1.0); TOTAL PROTEIN 7.6 g/dL (6.4-8.2)
[2020-10-06 09:59] VITALS: BP 137/83
[2020-10-06] MEDS: CEFTAROLINE 200 MG in SODIUM CHLORIDE 0.9% 100 ML IV SCH (10:32)
[2020-10-06 15:20] VITALS: BP 119/75
[2020-10-06 19:57] VITALS: BP 120/72
[2020-10-07] MEDS ORDERED: LINEZOLID 600 MG TABLET PO SCH (09:00)
== END 2020-10-06 21:30 | disposition left against medical advice (07) | DRG 720 ==
LOC: ED 15:06 → SUATTDRO 15:58 → EDIP 16:04 → 4WST 18:33
PROVIDERS: ADMIT Internal Medicine; ATTEND Hospitalist
DX: A41.02 Sepsis due to Methicillin resistant Staphylococcus aureus (principal); N17.0 Acute kidney failure with tubular necrosis; I50.33 Acute on chronic diastolic (congestive) heart failure; E87.2 Acidosis; D50.9 Iron deficiency anemia, unspecified; F15.10 Other stimulant abuse, uncomplicated; L03.116 Cellulitis of left lower limb; D63.1 Anemia in chronic kidney disease; I13.0 Hypertensive heart and chronic kidney disease with heart failure and stage 1 through stage 4 chronic kidney disease, or unspecified chronic kidney disease; F17.200 Nicotine dependence, unspecified, uncomplicated; F41.9 Anxiety disorder, unspecified; I16.9 Hypertensive crisis, unspecified; I25.10 Atherosclerotic heart disease of native coronary artery without angina pectoris; I87.8 Other specified disorders of veins; L02.419 Cutaneous abscess of limb, unspecified; N13.6 Pyonephrosis; N18.4 Chronic kidney disease, stage 4 (severe); N32.89 Other specified disorders of bladder; N40.1 Benign prostatic hyperplasia with lower urinary tract symptoms; R73.03 Prediabetes; Z53.20 Procedure and treatment not carried out because of patient's decision for unspecified reasons; B19.20 Unspecified viral hepatitis C without hepatic coma; M10.9 Gout, unspecified; R70.0 Elevated erythrocyte sedimentation rate; R79.82 Elevated C-reactive protein (CRP); Z59.0 Homelessness; Z83.3 Family history of diabetes mellitus; Z91.19 Patient's noncompliance with other medical treatment and regimen; Z90.49 Acquired absence of other specified parts of digestive tract; Z79.899 Other long term (current) drug therapy; Z79.891 Long term (current) use of opiate analgesic; Z79.01 Long term (current) use of anticoagulants; Z82.49 Family history of ischemic heart disease and other diseases of the circulatory system; Z84.1 Family history of disorders of kidney and ureter
CPT/HCPCS: 36415; 76770; 80053; 80069; 80074; 80202; 81001; 82728; 83036; 83540; 83550; 83605; 83970; 84100; 84145; 85025; 85610; 85651; 85730; 86140; 86480; 86592; 87040; 87077; 87081; 87086; 87147; 87186; 87521; 87522; 87806; 93005; 93306; 96374; G0378; J0696; J0712; J1644; J1756; J3370; G0475; J0360; J2270; J7050; J7120

== ENCOUNTER 2020-10-14 18:18 | Emergency (ER) | payer MEDICAID ==
[~2020-10-14] VITALS: Ht 182.9 cm; Wt 81.1 kg
--- NOTE | 2020-10-14 18:30 | NUR ---
PATIENT WALKED BACK FROM TRIAGE WITH CHIEF C/O RIGHT LOWER LEG SWELLING X3 DAYS. PER PATIENT HE WAS RECENTLY RELEASED FROM HOSPITAL AND HAS BEEN OUT OF MEDS FOR 3 DAYS, HIS RIGHT LEG HAS BEEN SWELLING SINCE THIS TIME. HANNAH GANN, ACCOMPANIED BY FAMILY MEMBER, RIGHT LEG HAS 3+ PITTING EDEMA, PATIENT HAS CKD IV.
--- NOTE | 2020-10-14 18:47 | NUR ---
report recieved from viridiana brennan
[2020-10-14 20:09] VITALS: BP 156/105
--- NOTE | 2020-10-14 20:52 | NUR ---
PT GETTING READY AT THIS TIME, PROVIDED WHEELCHAIR PER REQUEST. PT WANTED PERSCRIPTION FOR PAIN MEDS, SPOKE WITH ERP UNABLE TO GET ONE. PT UNDERSTANDING TO FOLLOW UP WITH PRIMARY CARE, RESOURCES PROVIDED.
== END 2020-10-14 21:03 | disposition home or self-care (01) ==
LOC: ED 21:01
DX: L03.116 Cellulitis of left lower limb (principal); Z76.0 Encounter for issue of repeat prescription; I11.0 Hypertensive heart disease with heart failure; I50.9 Heart failure, unspecified; Z86.19 Personal history of other infectious and parasitic diseases
CPT/HCPCS: 99281